=== PATIENT | female | born 1990 | race African-American/Black ===

== ENCOUNTER 2023-09-04 17:39 | Emergency (ER) | payer MEDICAID, SELFPAY ==
--- NOTE | ~2023-09-04 | US_ITS ---
EXAMINATION: US , LIMITED CLINICAL INFORMATION: Limited evaluation for the detection of heart rate and movement. COMPARISON: None available. TECHNIQUE: Very limited evaluation of the pelvis for determination of heart rate and movement. FINDINGS: Single intrauterine . movement is present. heart rate is 144 bpm. The cervical os is closed and the cervical length is 2.4 cm. No measurements were obtained. Evaluation is not targeted for evaluation of the or placental anatomy. The maternal uterus and ovaries were not imaged. US/US OB limited IMPRESSION: Very limited examination with present movements and heart rate.
[2023-09-04 17:53] VITALS: BP 122/76; PULSE 105; RESP 18; TEMP 36.2; O2SAT 99; BMI 33.8
--- NOTE | 2023-09-04 17:53 | ED_ITS ---
HPI - General Chief complaint: Abdominal Pain Stated complaint: 7 1/2 , Dizzy w/ lower abd pain History of Present Illness HPI Narrative: left without completing treatment Related Data Allergies Allergy/AdvReac Type Severity Reaction Status Date / Time No Known Allergies Allergy Verified 09/04/23 18:06 [facility] Social History Social History Advance Directives: No Advance Directives Information Provided: No Physical Exam 2 Vital Signs: Vital Signs: Last Vital Signs Temp 97.2 F 09/04/23 17:53 Pulse 105 H 09/04/23 17:53 Resp 18 09/04/23 17:53 BP 122/76 09/04/23 17:53 Pulse Ox 99 09/04/23 17:53 O2 Del Method Room Air 09/04/23 17:53 BMI result Body Mass Index 33.8 Course Course Course Narrative: This is an RME performed by Heidy Arzate CNP: Additional HPI, ROS, PE not included below will be deferred to primary provider. Patient is a 33-year-old female LMP 02/16/2023, 28 weeks , estimated due date 11/26/2023, presenting to emergency department for evaluation of bilateral lower abdominal pain, general unwell feeling. Symptom onset was yesterday. She endorses having vaginal itching recently but denies any vaginal discharge or bleeding. When asked, she states she is unsure whether the pain she is experiencing feels consistent with contractions that she has experienced in the past. She has previously been receiving her care at [facility], she moved here 08/21/2023 to a [facility] home on [facility], has not yet established care here. Physical exam: Diffuse lower abdominal tenderness upon palpation Plan: Labs, urinalysis, ultrasound Medical Decision Making Lab Data 09/04/23 18:29 09/04/23 18:29 Labs: Lab Results 09/04/23 Range/Units 18:29 WBC 10.7 (4.8-10.8) X10*3/uL RBC 3.39 L (4.20-5.50) X10*6/uL Hgb 8.9 L (12.0-16.0) g/dl Hct 27.0 L (37.0-47.0) % MCV 79.6 L (80.0-98.0) fL MCH 26.3 L (27.0-33.0) pg MCHC 33.0 (31.0-35.0) g/dl RDW 14.6 (11.0-16.0) % Plt Count 349 (160-400) X10*3/uL MPV 10.1 (9.4-12.3) fL Immature Gran % (Auto) 0.6 H (0.0-0.4) % Neut % (Auto) 62.5 (45-73) % Lymph % (Auto) 23.7 (20-40) % [place] % (Auto) 10.6 (2-11) % Eos % (Auto) 2.3 (0-4) % Baso % (Auto) 0.3 (0-2) % Lymph # (Auto) 2.5 (1.2-4.9) X10*3/uL [place] # (Auto) 1.1 (0.1-1.2) X10*3/uL Eos # (Auto) 0.3 (0.0-0.4) X10*3/uL Baso # (Auto) 0.0 (0.0-0.2) X10*3/uL Abs Immat Gran (auto) 0.06 H (0.00-0.03) X10*3/uL Absolute Neuts (auto) 6.7 (2.0-8.3) x10*3/uL Absolute Nucleated RBC 0.000 (0.0-0.012) X10*3/uL Nucleated RBC % (auto) 0.0 (0.0-0.2) /100WBC Sodium 139 (135-145) mmol/L Potassium 3.3 (3.3-5.1) mmol/L Chloride 111 H (96-108) mmol/L Carbon Dioxide 21 L (22-29) mmol/L Anion Gap 10 L (12-20) BUN 3 L (9-16) mg/dL Creatinine 0.44 L (0.5-1.4) mg/dL Estim Creat Clear Calc 161.5 Estimated GFR > 60 Random Glucose 100 (60-115) mg/dL Calcium 9.1 (8.4-10.2) mg/dL Total Bilirubin 0.1 (0.0-1.0) mg/dL AST 15 (5-31) U/L ALT 13 (0-31) U/L Alkaline Phosphatase 82 (39-117) U/L Total Protein 6.4 L (6.5-8.0) g/dL Albumin 3.2 L (3.5-5.0) g/dL TSH 2.05 (0.32-4.0) uIU/mL Beta HCG, Quant 6432 mIU/mL Urine Color Yellow Urine Appearance Clear Urine pH 7.0 (5.0-9.0) Ur Specific [place] <= 1.005 (1.005-1.025) Urine Protein Negative (Neg-Trace) mg/dL Urine Glucose (UA) Negative (Negative) mg/dL Urine Ketones Negative (Negative) mg/dL Urine Blood Negative (Negative) Urine Nitrite Negative (Negative) Ur Leukocyte Esterase Negative (Negative) Influenza Type A (PCR) NEGATIVE (Negative) Influenza Type B (PCR) NEGATIVE (Negative) RSV RNA Qual (PCR) NEGATIVE (Negative) SARS-CoV-2 RNA (RT-PCR) NEGATIVE (Negative) Discharge Plan Discharge Clinical Impression: Abdominal pain Patient Disposition: Left W/O Completing Treatment Discharge Date/Time: 09/04/23 23:01
[2023-09-04 18:49] LABS: MANUAL DIFF FLAG NO
[2023-09-04 19:04] LABS: Appearance Urine Clear; Color Urine Yellow; Glucose Urine UA Negative (Negative); Leukocyte Esterase Urine Negative (Negative); Nitrite Urine Negative (Negative); Specific Gravity - Urine <= 1.005 (1.005-1.025); Urine Blood Negative (Negative); Urine Ketones Negative (Negative); Urine Protein Negative (Neg-Trace)
[2023-09-04 19:08] LABS: Basophils Percent Auto 0.3 % (0-2); Eosinophils Absolute Auto 0.3 X10*3/uL (0.0-0.4); Eosinophils Percent Auto 2.3 % (0-4); Hemoglobin 8.9 g/dl (12.0-16.0); Imm Gran Abs Auto 0.06 X10*3/uL (0.00-0.03); Imm Gran Pct Auto 0.6 % (0.0-0.4); Lymphocytes Absolute Auto 2.5 X10*3/uL (1.2-4.9); Lymphocytes Percent Auto 23.7 % (20-40); Mean Corpuscular Hemoglobin 26.3 pg (27.0-33.0); Mean Corpuscular Volume 79.6 fL (80.0-98.0); Mean Platelet Volume 10.1 fL (9.4-12.3); Monocytes Absolute Auto 1.1 X10*3/uL (0.1-1.2); Monocytes Percent Auto 10.6 % (2-11); Neutrophils Absolute Auto 6.7 x10*3/uL (2.0-8.3); Neutrophils Percent Auto 62.5 % (45-73); Platelet Count 349 X10*3/uL (160-400); Red Blood Count 3.39 X10*6/uL (4.20-5.50); Red Cell Distribution Width 14.6 % (11.0-16.0); White Blood Count 10.7 X10*3/uL (4.8-10.8)
[2023-09-04 19:20] LABS: Alanine Aminotransferase 13 U/L (0-31); Albumin Level 3.2 g/dL (3.5-5.0); Alkaline Phosphatase 82 U/L (39-117); Anion Gap 10 (12-20); Aspartate Amino Transferase 15 U/L (5-31); Bilirubin Total 0.1 mg/dL (0.0-1.0); Blood Urea Nitrogen 3 mg/dL (9-16); Calcium 9.1 mg/dL (8.4-10.2); Carbon Dioxide 21 mmol/L (22-29); Chloride 111 mmol/L (96-108); Creatinine Clr Calc Pharmacy 161.5; Estimated Glomerular Filt Rate > 60; Glucose Random 100 mg/dL (60-115); Potassium 3.3 mmol/L (3.3-5.1); Sodium 139 mmol/L (135-145); Total Protein 6.4 g/dL (6.5-8.0)
[2023-09-04 19:28] LABS: Influenza A PCR NEGATIVE (Negative); Influenza B PCR NEGATIVE (Negative); Resp Syncy Virus RNA Qual PCR NEGATIVE (Negative); SARS COV2 PCR INHOUSE NEGATIVE (Negative)
[2023-09-04 19:35] LABS: HCG Quantitative 6432 mIU/mL; TSH reflex Free T4 2.05 uIU/mL (0.32-4.0)
== END 2023-09-04 23:01 | disposition left against medical advice (07) ==
LOC: HO.ED 22:35
PROVIDERS: Nurse Practitioner Family; Emergency Provider Emergency Medicine
DX: R10.2 Pelvic and perineal pain (principal); R42 Dizziness and giddiness; Z03.818 Encounter for observation for suspected exposure to other biological agents ruled out; Z79.899 Other long term (current) drug therapy
CPT/HCPCS: 0241U; 76815; 80053; 81003; 84443; 84702; 85025; 99282; 99284

== ENCOUNTER 2024-11-24 11:00 | Outpatient (REF) | payer MEDICAID, SELFPAY ==
--- OUTSIDE RECORDS SUMMARY | 2024-11-22 09:00 | XMS_ITS | Encounter Summary ---
Author Organization [employer] Address [address] [place] [address] Care Team Providers Care Shrink Pit Operator Name Role Phone Unavailable Primary Care Provider Unavailabl e Reason for Visit * Reason Comments Annual Exam Encounter Details Date Type Department Care Team ([facility] st Contact Info) Description 11/22/2024 9:00 AM EDT Office Visit [facility] [address] [place] [address] Yoly Ashley, SHIRA [address] [place] [address] Regular astigmatism, bilateral (Primary Dx); Refractive amblyopia, left; Dry eyes, bilateral Social History Tobacco Use Types Packs/Day Years Used Date Smoking Tobacco: Never Assessed Comments Unknown Sex and Gender Information Value Date Recorded Sex Assigned at Female 12/21/2023 1:17 PM EDT Legal Sex Female 2:44 PM EDT Gender Identity Female 12/21/2023 1:17 PM EDT Sexual Orientation Don't know 12/21/2023 1: 17 PM EDT documented as of this encounter Progress Notes * Yoly Ashley, SHIRA - 11/22/2024 9:00 AM EDT Eye Care Progress Note Patient ID: Marita Mcleod II is a 34 y.o. female. Chief Complaint Annual Exam HPI Patient reports blurry vision both eyes (OU) at distance. Patient has never worn glasses. 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 Patient reports itching. Patient has not used any eyedrops. Patient is currently - denies flashes/floaters. Today is the patient's first eye exam. Last edited by Yoly Ashley, OD on 11/22/2024 9:36 AM. Current Medications[1] Medical History[2] Surgical History[3] Family History[4] Tobacco Use: Not on file Allergies[5] ROS Positive for: Eyes Negative for: Constitutional, Gastrointestinal, Neurological, Skin, Genitourinary, Musculoskeletal,HENT, Endocrine, Cardiovascular, Respiratory, Psychiatric, Allergic/Imm, Heme/Lymph Last edited by Yoly Ashley, OD on 11/22/2024 8:59 AM. Base Eye Exam Visual Acuity (Snellen - Linear) Right Left Dist sc 20/60-2 20/70 Tonometry ([facility] , 9:20 AM) Right Left Pressure 13 13 Pupils Pupils APD Right PERRL None Left PERRL None Visual [place] (Counting fingers) Left Right Full Full Extraocular Movement Right Left Full Full Neuro/Psych Oriented x3: Yes Mood/Affect: Normal Dilation Deferred as patient is Slit Lamp and Fundus Exam External Exam Right Left External Normal Normal Slit Lamp Exam Right Left Lids/Lashes MGD MGD Conjunctiva/Sclera White and quiet White and quiet Cornea Clear Clear Anterior Chamber Deep and quiet, angles open Deep and quiet, angles open Iris Flat, round Flat, round Lens Clear Clear Fundus Exam Right Left Vitreous Clear Clear Disc [place] and healthy [place] and healthy C/D Ratio Vertical 0.40 0.40 C/D Ratio Horizontal 0.40 0.40 Macula Flat, even pigmentation Flat, even pigmentation Vessels AV 2/3, normal course and caliber AV 2/3, normal course and caliber Periphery Not assessed Not assessed Refraction Manifest Refraction (Auto) Sphere Cylinder [place] Dist [place] Right -2.50 -1.50 087 Left -0.50 -3.00 071 Manifest Refraction #2 (Subjective) Sphere Cylinder [place] Dist VA Right -1.75 -1.00 087 20/20 Left -1.00 -2.50 090 20/25+1 Manifest Refraction #3 (Subjective) Sphere Cylinder [place] Dist VA Right -1.75 -1.00 087 Left -1.50 -1.75 090 Comments: Reduced cylinder (cyl) from MRx#2 to increase visual comfort. Trial frame demo'd MRx#3 - pt reports clear and comfortable vision Final Rx Sphere Cylinder [place] Right -1.75 -1.00 087 Left -1.50 -1.75 090 Expiration Date: 11/22/2026 Assessment and Plan Diagnoses and all orders for this visit: Dry eyes, bilateral - Recommended the use of artificial tears in both eyes 1gtt 2-4x/day. Patient given dry eye handoutwith OTC drop options. Refractive amblyopia, left - Meridional amblyopia left eye (OS) with BCVA 20/25+1 - Monitor Regular astigmatism, bilateral - Dispensed updated spec Rx - RMV form completed - will give to patient with glasses when order comes in Dilation deferred today as patient is currently . Advised patient to RTC immediately if flashes/floaters, changes in vision or other ocular concerns occur. RTC in 2 years for comprehensive eye exam or sooner as needed Yoly Ashley, OD 11/22/2024, 9:40 AM Rn Pacu Source: __ None __ Bilingual Staff _x_ Qualified Staff Drop Wire Hanger __ Telephone Rn Pacu; ID# __ Rn Pacu brought by patient (family member, friend, LIME SUPERVISOR, etc) __ In person sheet heater helper _x_ Ipad Rn Pacu; ID#: _[id number]__ Language Spoken During Exam: [place] [1] No current outpatient medications on file. No current facility-administered medications for this visit. [2] History reviewed. No pertinent past medical history. [3] History reviewed. No pertinent surgical history. [4] No family history on file. [5] No Known Allergies documented in this encounter Plan of Treatment Upcoming Encounters Date Type Department Care Team (Late st Contact Info) Description 01/16/2025 9:45 AM EDT Procedure Visit [facility] [address] [place] [address] Bere Browning MD [address] [place] [address] documented as of this encounter Visit Diagnoses Diagnosis Regular astigmatism, bilateral- Primary Refractive amblyopia, left Dry eyes, bilateral documented in this encounter
--- OUTSIDE RECORDS SUMMARY | 2024-11-24 10:15 | XMS_ITS | Encounter Summary ---
Author Organization [employer] Address [address] [place] [address] Care Team Providers Care Septic Tank Cleaner Name Role Phone Unavailable Primary Care Provider Unavailabl e Encounter Details Date Type Department Care Team (Late st Contact Info) Description 11/24/2024 10:15 AM EDT Office Visit [facility] [address] [place] [address] Bere Browning MD [address] [place] [address] Dyslipidemia (Primary Dx) Social History Tobacco Use Types Packs/Day Years Used Date Smoking Tobacco: Never Smokeless Tobacco: Never Tobacco Cessation:Counseling Given: Not Answered Alcohol Use Standard Drinks/Week Comments Never 0 (1 standard drink = 0.6 oz pur e alcohol) Depression Answer Date Recorded Patient Health Questionnaire-9 Score 0 11/24/2024 Patient Health Questionnaire-9 Score 0 11/24/2024 Last PHQ-9: Questionnaire Data Not on file 0 11/24/2024 Depression Answer Date Recorded Patient Health Questionnaire-2 Score 0 11/24/2024 Comments No Sex and Gender Information Value Date Recorded Sex Assigned at Female 12/21/2023 1:17 PM EDT Legal Sex Female 2:44 PM EDT Gender Identity Female 12/21/2023 1:17 PM EDT Sexual Orientation Don't know 12/21/2023 1: 17 PM EDT documented as of this encounter Last Filed Vital Signs Vital Sign Reading Time Taken Comments Blood Pressure 128/80 11/24/2024 10:04 AM EDT Pulse 90 11/24/2024 10:04 AM EDT Temperature 36.9 C (98.4 F) 11/24/2024 10:04 AM EDT Respiratory Rate 19 11/24/2024 10:04 AM EDT Oxygen Saturation 99% 11/24/2024 10:04 AM EDT Inhaled Oxygen Concentration - - Weight 72.1 kg (159 lb) 11/24/2024 10:04 AM EDT Height 144.8 cm (4' 9 ) 11/24/2024 10:04 AM EDT Body Mass Index 34.41 11/24/2024 10:04 AM EDT documented in this encounter Functional Status * Over the past 2 weeks, how often have you been bothered by any of the following problems? Question Answer Date of Assessment Author Patient Health Questionnaire -2 Score 0 11/24/2024 11:13 AM EDT Ashley Wilcox MA * Little interest or pleasure in doing things Answer Date of Assessment Author Not at all 11/24/2024 11:13 AM EDT Ashley Wilcox MA * Feeling down, depressed, or hopeless Answer Date of Assessment Author Not at all 11/24/2024 11:13 AM EDT Ashley Wilcox MA * Trouble falling or staying asleep, or sleeping too much Answer Date of Assessment Author Not at all 11/24/2024 11:13 AM EDT Ashley Wilcox MA * Feeling tired or having little energy Answer Date of Assessment Author Not at all 11/24/2024 11:13 AM EDT Ashley Wilcox MA * Poor appetite or overeating Answer Date of Assessment Author Not at all 11/24/2024 11:13 AM EDT Ashley Wilcox MA * Feeling bad about yourself - or that you are a failure or have let yourself or your family down Answer Date of Assessment Author Not at all 11/24/2024 11:13 AM EDT Ashley Wilcox MA * Trouble concentrating on things, such as reading the newspaper or watching television Answer Date of Assessment Author Not at all 11/24/2024 11:13 AM HAOT Ashley Wilcox MA * Moving or speaking so slowly that other people could have noticed? Or the opposite - being so fidgety or restless that you have been moving around a lot more than usual. Answer Date of Assessment Author Not at all 11/24/2024 11:13 AM EDT Ashley Wilcox MA * Thoughts that you would be better off or hurting yourself in some way Answer Date of Assessment Author Not at all 11/24/2024 11:13 AM EDT Ashley Wilcox MA * Patient Health Questionnaire-9 Score Answer Date of Assessment Author 0 11/24/2024 11:13 AM EDT Ashley Wilcox MA * Over the last 2 weeks, how often have you been bothered by any of the following problems? Question Answer Date of Assessment Author Feeling nervous, anxious, or on edge 0 11/24/2024 11:13 AM EDT Ashley Wilcox MA Not being able to stop or co ntrol worrying 0 11/24/2024 11:13 AM EDT Ashley Wilcox MA Worrying too much about diff erent things 0 11/24/2024 11:13 AM EDT Ashley Wilcox MA Trouble relaxing 0 11/24/2024 11:13 AM EDT Ashley Wilcox MA Being so restless that it is hard to sit still 0 11/24/2024 11:13 AM EDT Ashley Wilcox MA Becoming easily annoyed or irritable 0 11/24/2024 11:13 AM EDT Ashley Wilcox MA Feeling afraid as if somethi ng awful might happen 0 11/24/2024 11:13 AM EDT Ashley Wilcox MA SREEKANTH-7 Total Score 0 11/24/2024 11:13 AM EDT Ashley Wilcox MA documented as of this encounter Plan of Treatment Upcoming Encounters Date Type Department Care Team (Late st Contact Info) Description 01/16/2025 9:45 AM EDT Procedure Visit [facility] [address] [place] [address] Bere Browning MD [address] [place] [address] Scheduled Orders Name Type Priority Associated Diagnoses Orde r Schedule CBC auto differential Lab Routine Dyslipidemia Expected: 11/24/2024 (Approximate), Expires: 11/24/2025 Comprehensive Metabolic Panel Lab Routine Dyslipidemia Expected: 11/24/2024 (Approximate), Expires: 11/24/2025 Hemoglobin A1c Lab Routine Dyslipidemia Expected: 11/24/2024 (Approximate), Expires: 11/24/2025 HIV-1/2 Antigen and Antibodies, Fourth Generation, with Reflexes Lab Routine Dyslipidemia Expected: 11/24/2024 (Approximate), Expires: 11/24/2025 Hepatitis C Antibody with Reflex to HCV, RNA, Quantitative, Real-Time PCR Lab Routine Dyslipidemia Expected: 11/24/2024, Expires: 11/24/2025 Lipid Panel, Standard Lab Routine Dyslipidemia Expected: 11/24/2024 (Approximate), Expires: 11/24/2025 Vitamin D, 25-Hydroxy, Total, Immunoassay Lab Routine Dyslipidemia Expected: 11/24/2024 (Approximate), Expires: 11/24/2025 TSH with Reflex to Free T4 Lab Routine Dyslipidemia Expected: 11/24/2024 (Approximate), Expires: 11/24/2025 documented as of this encounter Visit Diagnoses Diagnosis Dyslipidemia- Primary Other and unspecified hyperlipidemia documented in this encounter Additional Health Concerns Assessment Noted Time PHQ-9 Depression Total Score: 0 11/25/19 25 11:13 AM EDT documented as of this encounter
--- OUTSIDE RECORDS SUMMARY | 2024-11-24 12:25 | XMS_ITS | Encounter Summary ---
Author Organization [employer] Address [address] [facility] [address] [place] [address] Care Team Providers Care Inbound Sales Consultant Name Role Phone Unavailable Primary Care Provider Unavailabl e Encounter Details Date Type Department Care Team (Latest Contact Info) Description 11/24/2024 Travel Social History Tobacco Use Types Packs/Day Years Used Date Smoking Tobacco: Never Smokeless Tobacco: Never Alcohol Use Standard Drinks/Week Comments Never 0 [...] PM EDT documented as of this encounter Functional Status * Over the [...] Author Not at all 11/24/2024 11:13 AM Ashley José MA * Feeling tired or having little energy Answer Date of Assessment Author Not at all 11/24/2024 11:13 AM Ashley José MA * Poor appetite or overeating Answer Date of Assessment Author Not at all 11/24/2024 11:13 AM Ashley José MA * Feeling bad about yourself - or that you are a failure or have let yourself or your family down Answer Date of Assessment Author Not at all 11/24/2024 11:13 AM Ashley José MA * Trouble concentrating on things, such as reading the newspaper or watching television Answer Date of Assessment Author Not at all 11/24/2024 11:13 AM Ashley José MA * Moving or speaking so slowly that other people could have noticed? Or the opposite - being so fidgety or restless that you have been moving around a lot more than usual. Answer Date of Assessment Author Not at all 11/24/2024 11:13 AM Ashley José MA * Thoughts that you would be better off or hurting yourself in some way Answer Date of Assessment Author Not at all 11/24/2024 11:13 AM Ashley José MA * Patient Health Questionnaire-9 Score Answer Date of Assessment Author 0 11/24/2024 11:13 AM Ashley José MA * Over the last 2 weeks, how often have you been bothered by any of the following problems? Question Answer Date of Assessment Author Feeling nervous, anxious, or on edge 0 11/24/2024 11:13 AM Ashley José MA Not being able to stop or co ntrol worrying 0 11/24/2024 11:13 AM Ashley José MA Worrying too much about diff erent things 0 11/24/2024 11:13 AM Ashley José MA Trouble relaxing 0 11/24/2024 11:13 AM sAhley José MA Being so restless that it is hard to sit still 0 11/24/2024 11:13 AM EDT Ashley Wilcox MA Becoming easily annoyed or irritable 0 11/24/2024 11:13 AM EDT Ashley Wilcox MA Feeling afraid as if somethi ng awful might happen 0 11/24/2024 11:13 AM EDT Ashley Wilcxo MA SREEKANTH-7 Total Score 0 11/24/2024 11:13 AM EDT Ashley Wilcox MA documented as of this encounter Plan of Treatment Upcoming Encounters Date Type Department Care Team (Late st Contact Info) Description 01/16/2025 9:45 AM EDT Procedure Visit [facility] [address] [place] [address] Bere Browning MD [address] [place] [address] documented as of this encounter Visit Diagnoses Not on filedocumented in this encounter Additional Health Concerns Assessment Noted Time PHQ-9 Depression Total Score: 0 11/25/19 11:13 AM EDT documented as of this encounter
--- OUTSIDE RECORDS SUMMARY | 2024-11-24 12:25 | XMS_ITS | Encounter Summary ---
Author Organization [employer] Address [address] [facility] [address]t [place] [address] Care Team Providers Care Vice Chair Name Role Phone Unavailable Primary Care Provider Unavailabl e Reason for Visit * Reason Onset Date Comments chart prep 11/23/2024 Encounter Details Date Type Department Care Team (Late st Contact Info) Description 11/23/2024 Telephone [facility] [address] [place] [address] Bere Browning MD [address] [place] [address] chart prep Social History Tobacco Use Types Packs/Day Years Used Date Smoking Tobacco: Never Assessed Depression Answer Date Recorded Patient Health Questionnaire-9 Score 0 11/24/2024 Patient Health Questionnaire-9 Score 0 11/24/2024 Last PHQ-9: Questionnaire Data Not on file 0 11/24/2024 Depression Answer Date Recorded Patient Health Questionnaire-2 Score 0 11/24/2024 Comments Unknown Sex and Gender Information Value Date Recorded Sex Assigned at Female 12/21/2023 1:17 PM EDT Legal Sex Female 2:44 PM EDT Gender Identity Female 12/21/2023 1:17 PM EDT Sexual Orientation Don't know 12/21/2023 1: 17 PM EDT documented as of this encounter Miscellaneous Notes * Telephone Encounter - Que Frankel MA - 11/23/2024 9:49 AM EDT Chart Prep Labs: not applicable Images: not applicable Referrals: not applicable Vaccines due: Covid, Flu, Hep B, and HPV Screenings: pap smear Overdue care gaps: SBIRT, SDOH, PHQ-9, and SREEKANTH-7 documented in this encounter Plan of Treatment Upcoming Encounters Date Type Department Care Team (Late st Contact Info) Description 01/16/2025 9:45 AM EDT Procedure Visit [facility] [address] [place] [address] Bere Browning MD [address] [place] [address] documented as of this encounter Visit Diagnoses Not on filedocumented in this encounter
--- OUTSIDE RECORDS SUMMARY | 2024-11-24 12:25 | XMS_ITS | Encounter Summary ---
Author Organization [employer] Address [address] [facility] [address] [place] [address] Care Team Providers Care Pediatric Clinical Dietician Name Role Phone Unavailable Primary Care Provider Unavailabl e Encounter Details Date Type Department Care Team (Latest Contact Info) Description 11/22/2024 Travel Social History Tobacco Use Types Packs/Day Years Used Date Smoking Tobacco: Never Assessed Comments Unknown Sex and Gender Information Value Date Recorded Sex Assigned at Female 12/21/2023 1:17 PM EDT Legal Sex Female 2:44 PM EDT Gender Identity Female 12/21/2023 1:17 PM EDT Sexual Orientation Don't know 12/21/2023 1: 17 PM EDT documented as of this encounter Plan of Treatment Upcoming Encounters Date Type Department Care Team (Late st Contact Info) Description 01/16/2025 9:45 AM EDT Procedure Visit [facility]INE [address] [place] [address] Bere Browning MD [address] [place] [address] documented as of this encounter Visit Diagnoses Not on filedocumented in this encounter
--- OUTSIDE RECORDS SUMMARY | 2024-11-24 12:25 | XMS_ITS | Clinical Summary ---
Author Organization [employer] Address [address] [facility] [address] [place] [address] Care Team Providers Care Securities Underwriter Name Role Phone Unavailable Primary Care Provider Unavailabl e Allergies No known active allergies Medications lidocaine (Xylocaine) 5 % ointmentIndicat ions:Painful cutaneous scar Apply topically if needed in the morning and at bedtime for mild pain. Apply to painful scar on abdomen sparingly. 35 g 1 11/23/19 25 Discontinu ed(Therapy completed) Active Problems Problem Noted Date Diagnosed Date Dyslipidemia 11/24/2024 Encounters Date Type Department Care Team Description 11/24/2024 10:15 AM EDT Office Visit [facility] [address] [place] [address] Bere Browning MD Dyslipidemia (Primary Dx) 11/24/2024 Travel 11/23/2024 Telephone [facility] [address] [place] [address] Bere Browning MD chart prep 11/22/2024 9:00 AM EDT Office Visit [facility] [address] [place] [address] Yoly Ashley, OD Regular astigmatism, bilateral (Primary Dx); Refractive amblyopia, left; Dry eyes, bilateral 11/22/2024 Travel from Last 3 Months Immunizations Immunization Administration Dates Next Due Influenza, seasonal, injectable, preservative fr ee 02/24/2024 Tdap 09/24/2023 Social History Tobacco Use Types Packs/Day Years [...] Don't know 12/21/2023 1: 17 PM EDT Last Filed Vital Signs Vital Sign Reading [...] Mass Index 34.41 11/24/2024 10:04 AM EDT Plan of Treatment Upcoming Encounters Date Type Department Care Team (Late st Contact Info) Description 01/16/2025 9:45 AM EDT Procedure Visit [facility] [address] [place] [address] Bere Browning MD [address] [place] [address] Health Maintenance Due Date Last Done Comments Lipid Panel 1990 SDOH Screening 1990 Family Planning (PISQ) 2005 HPV Vaccines (1 - 3-dose series) 2005 Hepatitis C Screening 2008 Hepatitis B Vaccines (1 of 3 - 19+ 3-dose series) 2009 Pap Smear 2011 Cervical Cancer Screening 2020 HPV/Cotest 2020 COVID-19 Vaccine (1 - 2023-2 5 season) 2023 Influenza Vaccine (#1) 2024 02/24/2024 Alcohol/Substance Use Screening 11/24/2025 11/24/2024 Depression Screening 11/24/2025 11/24/2024, 11/24/2024 Disability Screening 11/24/2025 11/24/2024 Tobacco Screening 11/24/2025 11/24/2024 DTaP/Tdap/Td Vaccines (2 - T d or Tdap) 09/23/2033 09/24/2023 Zoster Vaccines (1 of 2) 2040 RSV Patients and Patients Aged 60 years or older (1 - 1-dose 75+ series) 2065 HIV Screening Completed 08/05/2023, 08/05/2023 HIB Vaccines Aged Out No longer eligi ble based on patient's age to complete this topic Hepatitis A Vaccines Aged Out No long er eligible based on patient's age to complete this topic IPV Vaccines Aged Out No longer eligi ble based on patient's age to complete this topic Meningococcal B Vaccine Aged Out No l onger eligible based on patient's age to complete this topic Meningococcal Vaccine Aged Out No syeda bridger eligible based on patient's age to complete this topic Pneumococcal Vaccine: Pediatrics (0 to 5 Years) and At-Risk Patients (6 to 49) Years Aged Out No longer eligible b ased on patient's age to complete this topic RSV under 20 months Aged Out No longe r eligible based on patient's age to complete this topic Rotavirus Vaccines Aged Out No longer eligible based on patient's age to complete this topic Insurance [facility] C3
[2024-11-24 13:17] LABS: MANUAL DIFF FLAG NO
[2024-11-24 13:33] LABS: Hemoglobin A1C 109.2537 umol/L; Total Hemoglobin (HGBA1C) 2721.6517 umol/L
[2024-11-24 13:40] LABS: Hematocrit 33.4 % (37.0-47.0); Hemoglobin 10.0 g/dl (12.0-16.0); Imm Gran Abs Auto 0.01 X10*3/uL (0.00-0.03); Imm Gran Pct Auto 0.2 % (0.0-0.4); Lymphocytes Absolute Auto 3.1 X10*3/uL (1.2-4.9); Mean Corpuscular HGB Conc 29.9 g/dl (31.0-35.0); Mean Corpuscular Hemoglobin 22.7 pg (27.0-33.0); Mean Corpuscular Volume 75.9 fL (80.0-98.0); NRBC Abs Auto 0.000 X10*3/uL (0.0-0.012); NRBC Pct Auto 0.0 /100WBC (0.0-0.2); Platelet Count 451 X10*3/uL (160-400); Red Blood Count 4.40 X10*6/uL (4.20-5.50); White Blood Count 6.6 X10*3/uL (4.8-10.8)
[2024-11-24 13:47] LABS: Alanine Aminotransferase 24 U/L (0-31); Albumin Level 4.5 g/dL (3.5-5.0); Alkaline Phosphatase 71 U/L (39-117); Anion Gap 11 (12-20); Aspartate Amino Transferase 23 U/L (5-31); Blood Urea Nitrogen 7 mg/dL (9-16); Calcium 9.2 mg/dL (8.4-10.2); Carbon Dioxide 25 mmol/L (22-29); Chloride 109 mmol/L (96-108); Cholesterol 254 mg/dL (<200); Estimated Glomerular Filt Rate > 60; HDL Cholesterol 52 mg/dL (>40); Potassium 4.0 mmol/L (3.3-5.1); Sodium 141 mmol/L (135-145); Total Protein 7.5 g/dL (6.5-8.0); Triglycerides 120 mg/dL (<150)
[2024-11-25 03:49] LABS: HIV Num 1 0.09 S/CO (0.00-0.99); ~HepC Num1 0.12 S/CO (0.00-0.79); ~Hepatitis C Antibody Nonreactive (Nonreactive)
== END 2024-11-24 11:01 | disposition home or self-care (01) ==
LOC: HO.HHCL 11:00
PROVIDERS: PCP Internal Medicine; Visit Provider Internal Medicine
DX: E78.5 Hyperlipidemia, unspecified (principal); Z11.4 Encounter for screening for human immunodeficiency virus [HIV]; Z11.59 Encounter for screening for other viral diseases
CPT/HCPCS: 36415; 80053; 80061; 82306; 83036; 84443; 85025; 86803; 87389

== ENCOUNTER 2024-11-29 12:05 | Outpatient (REF) | payer MEDICAID, SELFPAY ==
--- OUTSIDE RECORDS SUMMARY | 2024-11-24 10:15 | XMS_ITS | Encounter Summary ---
Author Organization [employer] Address [address] [facility] [address] [place] [address] Care Team Providers Care Yard Hostler Name Role Phone Unavailable Primary Care Provider Unavailabl e Encounter Details Date Type Department Care Team (Late st Contact Info) Description 11/24/2024 10:15 AM EDT Office Visit [facility] [address] [place] [address] Bere Browning MD [address] [place] [phone] Dyslipidemia (Primary Dx) Social History Tobacco Use [...] of Assessment Author 0 11/24/2024 11:13 AM HAOT Ashley Wilcox MA * Over the last [...] awful might happen 0 11/24/2024 11:13 AM HAOT Ashley Wilcox MA SREEKANTH-7 Total Score 0 11/24/2024 11:13 AM EDT Ashley Wilcox MA documented as of this encounter Progress Notes * Bere Cai MD - 11/24/2024 10:15 AM EDT SUBJECTIVE: Marita Mcleod II is a 34 y.o. year old female who presents for New patient . 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 HENT: Negative. Respiratory: Negative. Cardiovascular: Negative. OBJECTIVE: Vitals: 11/24/24 1004 BP: 128/80 BP Location: Left arm Patient Position: Sitting BP Cuff Size: Adult Pulse: 90 Resp: 19 Temp: 98.4 ??F (36.9 ??C) TempSrc: Oral SpO2: 99% Weight: 159 lb (72.1 kg) Height: 4' 9 (1.448 m) Physical Exam Constitutional: Appearance: Normal appearance. Cardiovascular: Rate and Rhythm: Normal rate and regular rhythm. Pulmonary: Effort: Pulmonary effort is normal. Breath sounds: Normal breath sounds. Abdominal: General: Abdomen is flat. Palpations: Abdomen is soft. Musculoskeletal: Right lower leg: No edema. Left lower leg: No edema. Neurological: Mental Status: She is alert. Follow Up: Follow up for next available PAP and review of labs . Medications Ordered Prior to Encounter[3] Problem List Items Addressed This Visit Dyslipidemia - Primary Blood work ordered today, she will be contacted with results Relevant Orders CBC auto differential Comprehensive Metabolic Panel Hemoglobin A1c HIV-1/2 Antigen and Antibodies, Fourth Generation, with Reflexes Hepatitis C Antibody with Reflex to HCV, RNA, Quantitative, Real-Time PCR Lipid Panel, Standard Vitamin D, 25-Hydroxy, Total, Immunoassay TSH with Reflex to Free T4 [1] Patient Active Problem List Diagnosis Dyslipidemia [2] No family history on file. [3] Current Outpatient Medications on File Prior to Visit Medication Sig Dispense Refill [DISCONTINUED] lidocaine (Xylocaine) 5 % ointment Apply topically if needed in the morning and at bedtime for mild pain. Apply to painful scar on abdomen sparingly. 35 g 1 No current facility-administered medications on file prior to visit. documented in this encounter Miscellaneous Notes * Assessment & Plan Note - Bere Cai MD - 11/24/2024 12:29 PM EDT Associated Problem(s): Dyslipidemia Blood work ordered today, she will be contacted with results documented in this encounter Plan of Treatment Upcoming Encounters Date Type Department Care Team (Late st Contact Info) Description 01/16/2025 9:45 AM EDT Procedure Visit [facility] [address] [place], [place] [phone] Bere Browning MD [address] [place], [place] [phone] documented as of this encounter Procedures Procedure Name Priority Date/Time Associated Diagnosis Comments VITAMIN D,25-OH,TOTAL,IA Routine 11/24/2024 11:05 AM EDT Dyslipidemia TSH W/REFLEX TO FT4 Routine 11/24/2024 1 1:05 AM EDT Dyslipidemia CBC WITH AUTO DIFFERENTIAL Routine 11/24/2024 11:05 AM EDT Dyslipidemia HEPATITIS C AB W/REFL TO HCV RNA, QN, PCR Routine 11/24/2024 11:05 AM EDT Dyslipidemia HIV 1/2 ANTIGEN/ANTIBODY, FOURTH GENERATION W/RFL Routine 11/24/2024 11:05 AM EDT Dyslipidemia HEMOGLOBIN A1C Routine 11/24/2024 11:05 AM EDT Dyslipidemia LIPID PANEL, STANDARD Routine 11/24/2024 11:05 AM EDT Dyslipidemia COMPREHENSIVE METABOLIC PANEL Routine 11/24/2024 11:05 AM EDT Dyslipidemia documented in this encounter Results * TSH with Reflex to Free T4 (11/24/2024 11:05 AM EDT) TSH reflex Free T4 0.89 0.32 - 4.0 uIU/mL [facility] Blood Venous blood specimen / Unknown 11/24/2024 11:05 AM EDT 11/24/2024 1:12 PM EDT us Bere Cai MD LAB BLOOD ORDERABLES Final Result [facility] [address] [place] [phone] * (ABNORMAL) Vitamin D, 25-Hydroxy, Total, Immunoassay (11/24/2024 11:05 AM EDT) Vitamin D 25-OH Total 15.0(L) >30 ng/mL [facility] Comment: Health Based Reference Values*< 20 ng/mL [id number] ng/mL Insufficient> 30 ng/mL Sufficient*Sidney TELLO. N Engl J Med. 2007;357:266-280There is no well-established upper level of normal vitamin Dlevels. Some laboratories use 50 ng/mL as an upper limit ofnormal. However, toxicity is patient-dependent and may occurat any level. Careful correlation with the patient'spresentation is necessary and, if there is concern forvitamin D toxicity, treatment should be consideredirrespective of the serum level.Care must be taken in interpreting Vitamin D results fromdifferent laboratories and methodologies. Published datademonstrated that results from patients undergoinghemodialysis may show a negative bias when tested withvarious automated 25-OH vitamin D assays when compared toLC-MS/MS.When testing samples from patients whose predominant form ofVitamin D is Vitamin D2, such as patients receiving VitaminD2 supplementation, results that are subtherapeutic shouldbe confirmed with another method such as LC-MS/MS. Blood Venous blood specimen / Unknown 11/24/2024 11:05 AM EDT 11/24/2024 1:12 PM EDT us Bere Cai MD LAB BLOOD ORDERABLES Final Result [facility] [address] [place] [phone] [phone] * (ABNORMAL) Lipid Panel, Standard (11/24/2024 11:05 AM EDT) Triglycerides 120 <150 mg/dL [facility] Comment:Desirable Triglyceri de: less than 150 mg/dLBorderline High Triglyceride 150-199 mg/dLHigh Triglyceride: 200-499 mg/dLVery High Triglyceride: greater than or equal to 5OO mg/dL Cholesterol 254(H) <200 mg/dL [facility] Comment:Desirable Cholestero l: less than 200 mg/dLBorderline High Cholesterol: 200-239 mg/dLHigh Cholesterol: greater than 239 mg/dL LDL Cholesterol Calculated 178(H) <100 mg/dL [facility] Comment:Desirable LDL: less than 100 mg/dLNear Optimal/Above Optimal LDL: 110- 129 mg/dLBorderline High LDL: 130-159 mg/dLHigh LDL: 160-189 mg/dLVery High LDL: greater than or equal to 190 mg/dL HDL Cholesterol 52 >40 mg/dL [facility] Comment:Desirable HDL: great er than 40 mg/dL Note: This HDL assay may give artificially low results in patients with liver disease. Blood Venous blood specimen / Unknown 11/24/2024 11:05 AM EDT 11/24/2024 1:12 PM EDT us Bere Cai MD LAB BLOOD ORDERABLES Final Result [facility] [address] [place] [phone] * Hepatitis C Antibody with Reflex to HCV, RNA, Quantitative, Real-Time PCR (11/24/2024 11:05 AM EDT) Hepatitis C Antibody Nonreactive Nonreactive [facility] Comment:Antibodies to HCV no t detected; does not exclude early acuteHCV infection. Blood Venous blood specimen / Unknown 11/24/2024 11:05 AM EDT 11/24/2024 1:12 PM EDT Bere Cai MD LAB BLOOD ORDERABLES Final Result Performing Organization Address [facility] [place] [facility] Co de Phone Number [facility] [address] [place] [phone] * HIV-1/2 Antigen and Antibodies, Fourth Generation, with Reflexes (11/24/2024 11:05 AM EDT) HIV AB/AG Nonreactive Nonreactive [facility] Comment:HIV-1 p24 Ag and/or HIV-1/HIV-2 Ab not detected.A test result that is nonreactive does not exclude thepossibility of exposure to or infection with HIV-1 and/orHIV-2. Nonreactive results in this assay for individualswith prior exposure to HIV-1 and/or HIV-2 may be due toantigen and antibody levels that are below the limit ofdetection of this assay.The PeriphaGen HIV Ag/Ab Combo assay result andsupplemental assay results should be interpreted inconjunction with the patient's clinical presentation,history and other laboratory results. If the results areinconsistent with clinical evidence, additional testing issuggested to confirm the result. Blood Venous blood specimen / Unknown 11/24/2024 11:05 AM EDT 11/24/2024 1:12 PM EDT us Bere Cai MD LAB BLOOD ORDERABLES Final Result Performing Organization Address [facility] [place] [facility]/ZIP Co de Phone Number [facility] [address] [place] [phone] * Hemoglobin A1c (11/24/2024 11:05 AM EDT) Hemoglobin A1c 5.8 <6.0 % [facility] Comment:Hemoglobin A1C Refer ence Range Adults: 4.8 - 6.0 % Non diabetic: < 6.0 % Goal: < 7.0 %Additional Action Suggested: > 8.0 %Note: Hemoglobin A1c results are invalid for patients with abnormal amounts of HbF. Blood transfusions may impact the HbA1c concentration in the patient sample. Estimated Average Glucose 120 mg/dL [facility] Comment:eAG = Estimated ave rage glucose which is %A1C expressed asaverage glucose, using the formula of the N5G-WbscqwzNxewpal Glucose study (ADAG), Diabetes Care, Vol.31,#8,Oct. 2007 Blood Venous blood specimen / Unknown 11/24/2024 11:05 AM EDT 11/24/2024 1:12 PM EDT us Bere Cai MD LAB BLOOD ORDERABLES Final Result [facility] [address] [place] [phone] * (ABNORMAL) Comprehensive Metabolic Panel (11/24/2024 11:05 AM EDT) Sodium 141 135 - 145 mmol/L [facility] Potassium 4.0 3.3 - 5.1 mmol/L [facility] Chloride 109(H) 96 - 108 mmol/L [facility] Carbon Dioxide 25 22 - 29 mmol/L [facility] Anion Gap 11(L) 12 - 20 [facility] Urea Nitrogen (BUN) 7(L) 9 - 16 mg/dL [facility] Creatinine, Serum 0.54 0.5 - 1.4 mg/dL [facility] Estimated Glomerular Filt Rate >60 [facility] Comment:Chronic Kidney Disea se: Estimated GFR < 60 mL/min/1.49e3Oghtkw Kidney Disease: Estimated GFR < 15 mL/min/1.73m2 Glucose 87 60 - 115 mg/dL [facility] Calcium 9.2 8.4 - 10.2 mg/dL [facility] Bilirubin, Total 0.2 0.0 - 1.0 mg/dL [facility] Aspartate Amino Transferase 23 5 - 31 U/L [facility] Alanine Aminotransferase 24 0 - 31 U/L [facility] Total Protein 7.5 6.5 - 8.0 g/dL [facility] Albumin Level 4.5 3.5 - 5.0 g/dL [facility] Alkaline Phosphatase 71 39 - 117 U/L [facility] Blood Venous blood specimen / Unknown 11/24/2024 11:05 AM EDT 11/24/2024 1:12 PM EDT Bere Cai MD LAB BLOOD ORDERABLES Final Result [facility] [address] [place] [phone] * (ABNORMAL) CBC auto differential (11/24/2024 11:05 AM EDT) White Blood Count 6.6 4.8 - 10.8 X10*3/uL [facility] Red Blood Count 4.40 4.20 - 5.50 X10*6/uL [facility] Hemoglobin 10.0(L) 12.0 - 16.0 g/dl [facility] Hematocrit 33.4(L) 37.0 - 47.0 % [facility] Mean Corpuscular Volume 75.9(L) 80.0 - 98.0 fL [facility] Mean Corpuscular Hemoglobin 22.7(L) 27.0 - 33.0 pg [facility] Mean Corpuscular HGB Conc 29.9(L) 31.0 - 35.0 g/dl [facility] Red Cell Distribution Width 17.1(H) 11.0 - 16.0 % [facility] Platelet Count 451(H) 160 - 400 X10*3/uL [facility] Mean Platelet Volume 10.4 9.4 - 12.3 fL [facility] Neutrophils Percent Auto 42.8(L) 45 - 73 % [facility] Imm Gran Pct Auto 0.2 0.0 - 0.4 % [facility] Lymphocytes Percent Auto 46.9(H) 20 - 40 % [facility] Monocytes Percent Auto 8.4 2 - 11 % [facility] Eosinophils Percent Auto 1.1 0 - 4 % [facility] Basophils Percent Auto 0.6 0 - 2 % [facility] NRBC Pct Auto 0.0 0.0 - 0.2 /100WBC [facility] Neutrophils Absolute Auto 2.8 2.0 - 8.3 x10*3/uL [facility] Imm Gran Abs Auto 0.01 0.00 - 0.03 X10*3/uL [facility] Lymphocytes Absolute Auto 3.1 1.2 - 4.9 X10*3/uL [facility] Monocytes Absolute Auto 0.6 0.1 - 1.2 X10*3/uL [facility] Eosinophils Absolute Auto 0.1 0.0 - 0.4 X10*3/uL [facility] Basophils Absolute Auto 0.0 0.0 - 0.2 X10*3/uL [facility] NRBC Abs Auto 0.000 0.0 - 0.012 X10*3/uL [facility] Blood Venous blood specimen / Unknown 11/24/2024 11:05 AM EDT 11/24/2024 1:12 PM EDT us Bere Cai MD LAB BLOOD ORDERABLES Final Result [facility] [address] [place] [phone] documented in this encounter Visit Diagnoses Diagnosis Dyslipidemia- Primary Other and unspecified hyperlipidemia documented in this encounter Additional Health Concerns Assessment Noted Time PHQ-9 Depression Total Score: 0 11/25/19 11:13 AM EDT documented as of this encounter
--- OUTSIDE RECORDS SUMMARY | 2024-11-29 13:24 | XMS_ITS | Clinical Summary ---
Author Organization [employer] Address [address] [facility] 7t [place] [address] Care Team Providers Care Machinist Mechanic Name Role Phone Unavailable Primary Care Provider Unavailabl e Allergies No known active allergies Medications cholecalciferol (Vitamin D-3) 25 MCG (1000 UT) tabletIndicatio ns:Anemia, unspecified type Take 1 tablet (25 mcg) by mouth Once per day. 60 tablet 1 5 Active ferrous gluconate (Fergon) 324 (38 Fe) MG tabletIndicatio ns:Anemia, unspecified type Take 1 tablet every other day 15 tablet 2 5 Active ascorbic acid (Vitamin C) 500 MG tabletIndicatio ns:Anemia, unspecified type Take 1 tablet every other day together with iron supplement 15 tablet 2 5 Active lidocaine (Xylocaine) 5 % ointmentIndicat ions:Painful cutaneous scar Apply topically if needed in the morning and at bedtime for mild pain. Apply to painful scar on abdomen sparingly. 35 g 1 5 11/23/19 25 Discontin ued(Thera py completed ) Active Problems Problem Noted Date Diagnosed Date Dyslipidemia 11/24/2024 Assessment & Plan (11/24/2024 12:29 PM EDT): Blood work ordered today, she will be contacted with results Encounters Date Type Department Care Team Description 11/29/2024 Orders Only [facility] MEDICINE [address] [place] [phone] Bere Browning MD Metrorrhagia (Primary Dx) 11/24/2024 10:15 AM EDT Office Visit [facility]INE [address] [place] [phone] Bere Browning MD Dyslipidemia (Primary Dx) 11/24/2024 Results Follow-Up [facility] [address] [place] [address] Bere Browning MD CBC auto differential, Comprehensive Metabolic Panel, Hemoglobin A1c, Additional followed-up results: 5 11/24/2024 Travel 11/23/2024 Telephone [facility] MEDICINE [address] [place] [address] Bere Browning MD chart prep 11/22/2024 9:00 AM EDT Office Visit [facility] OPTOMETRY [address] [place] [address] TarYoly arciniega, OD Regular astigmatism, bilateral (Primary Dx); Refractive [...] Description 01/16/2025 9:45 AM EDT Procedure Visit [facility] [address] [place], [place] [phone] Bere Browning MD [address] [place], [place] [phone] Health Maintenance Due Date Last Done Comments SDOH Screening 1990 Family Planning (PISQ) 2005 HPV Vaccines (1 - 3-dose series) 2005 Hepatitis B Vaccines (1 of 3 - 19+ 3-dose series) 2009 Pap Smear 2011 Cervical Cancer Screening 2020 HPV/Cotest 2020 COVID-19 Vaccine ( - 2023-2 5 season) 2024 Influenza Vaccine (#1) 2024 02/24/2024 Alcohol/Substance Use Screening 11/24/2025 11/24/2024 Depression Screening 11/24/2025 11/24/2024, 11/24/2024 Diabetes: Hemoglobin A1C 11/24/2025 11/24/2024 Disability Screening 11/24/2025 11/24/2024 Tobacco Screening 11/24/2025 11/24/2024 Lipid Panel 11/24/2029 11/24/2024 DTaP/Tdap/Td Vaccines (2 - T d or Tdap) 09/23/2033 09/24/2023 Zoster Vaccines (1 of 2) 2040 RSV Patients and Patients Aged 60 years or older (1 - 1-dose 75+ series) 2065 HIV Screening Completed 11/24/2024, 08/05/2023, 08/05/2023 Hepatitis C Screening Completed 11/24/2024 HIB Vaccines Aged Out No longer eligi [...] on patient's age to complete this topic Procedures Procedure Name Priority Date/Time Associated Diagnosis Comments TSH W/REFLEX TO FT4 Routine 11/24/2024 1 1:05 AM EDT Dyslipidemia VITAMIN D,25-OH,TOTAL,IA Routine 11/24/2024 11:05 AM EDT Dyslipidemia LIPID PANEL, STANDARD Routine 11/24/2024 11:05 AM EDT Dyslipidemia HEPATITIS C AB W/REFL TO HCV RNA, QN, PCR Routine 11/24/2024 11:05 AM EDT Dyslipidemia HIV 1/2 ANTIGEN/ANTIBODY, FOURTH GENERATION W/RFL Routine 11/24/2024 11:05 AM EDT Dyslipidemia HEMOGLOBIN A1C Routine 11/24/2024 11:05 AM EDT Dyslipidemia COMPREHENSIVE METABOLIC PANEL Routine 11/24/2024 11:05 AM EDT Dyslipidemia CBC WITH AUTO DIFFERENTIAL Routine 11/24/2024 11:05 AM EDT Dyslipidemia from Last 3 Months Results * (ABNORMAL) Vitamin D, 25-Hydroxy, Total, Immunoassay (11/24/2024 11:05 AM EDT) Vitamin D 25-OH Total 15.0(L) >30 ng/mL [facility] Comment: Health Based Reference Values*< 20 ng/mL [id number] ng/mL Insufficient> 30 ng/mL Sufficient*Sidney TELLO. N [...] BLOOD ORDERABLES Final Result Performing Organization Address City/[facility]/ZIP Co de Phone Number [facility] [address] [place] [phone] * TSH with Reflex to Free T4 (11/24/2024 11:05 AM EDT) TSH reflex Free T4 0.89 0.32 - 4.0 uIU/mL [facility] Blood Venous blood specimen / Unknown 11/24/2024 11:05 AM EDT 11/24/2024 1:12 PM EDT us Bere Cai MD LAB BLOOD ORDERABLES Final Result Performing Organization Address City/[facility]/ZIP Co de Phone Number [facility] [address] [place] [phone] * (ABNORMAL) CBC auto differential (11/24/2024 11:05 AM EDT) White Blood Count 6.6 4.8 - 10.8 X10*3/uL [facility] Red Blood Count 4.40 4.20 - 5.50 X10*6/uL [facility] Hemoglobin 10.0(L) 12.0 - 16.0 g/dl [facility] Hematocrit 33.4(L) 37.0 - 47.0 % [facility] Mean Corpuscular Volume 75.9(L) 80.0 - 98.0 fL [facility] Mean Corpuscular Hemoglobin 22.7(L) 27.0 - 33.0 pg [facility] Mean Corpuscular HGB Conc 29.9(L) 31.0 - 35.0 g/dl [facility] Red Cell Distribution Width 17.1(H) 11.0 - 16.0 % [facility] Platelet Count 451(H) 160 - 400 X10*3/uL [facility] Mean Platelet Volume 10.4 9.4 - 12.3 fL [facility] Neutrophils Percent Auto 42.8(L) 45 - 73 % [facility] Imm Gran Pct Auto 0.2 0.0 - 0.4 % [facility] Lymphocytes Percent Auto 46.9(H) 20 - 40 % [facility] Monocytes Percent Auto 8.4 2 - 11 % [facility] Eosinophils Percent Auto 1.1 0 - 4 % [facility] Basophils Percent Auto 0.6 0 - 2 % [facility] NRBC Pct Auto 0.0 0.0 - 0.2 /100WBC [facility] Neutrophils Absolute Auto 2.8 2.0 - 8.3 x10*3/uL [facility] Imm Gran Abs Auto 0.01 0.00 - 0.03 X10*3/uL [facility] Lymphocytes Absolute Auto 3.1 1.2 - 4.9 X10*3/uL [facility] Monocytes Absolute Auto 0.6 0.1 - 1.2 X10*3/uL [facility] Eosinophils Absolute Auto 0.1 0.0 - 0.4 X10*3/uL [facility] Basophils Absolute Auto 0.0 0.0 - 0.2 X10*3/uL [facility] NRBC Abs Auto 0.000 0.0 - 0.012 X10*3/uL [facility] Blood Venous blood specimen / Unknown 11/24/2024 11:05 AM EDT 11/24/2024 1:12 PM EDT Bere Cai MD LAB BLOOD ORDERABLES Final Result Performing Organization Address [facility]/ZIP Co de Phone Number [facility] [address] [place] [phone] * Hepatitis C Antibody with Reflex to HCV, RNA, Quantitative, Real-Time PCR (11/24/2024 11:05 AM EDT) Pathologist [facility] Hepatitis C Antibody Nonreactive Nonreactive [facility] Comment:Antibodies to HCV no t detected; does not exclude early acuteHCV infection. Blood Venous blood specimen / Unknown 11/24/2024 11:05 AM EDT 11/24/2024 1:12 PM EDT us Bere Cai MD LAB BLOOD ORDERABLES Final Result Performing Organization Address [facility]/ZIP Co de Phone Number [facility] [address] [place] [phone] * HIV-1/2 Antigen and Antibodies, Fourth Generation, with Reflexes (11/24/2024 11:05 AM EDT) Pathologist [facility] HIV AB/AG Nonreactive Nonreactive [facility] Comment:HIV-1 p24 Ag and/or HIV-1/HIV-2 Ab not detected.A test result that is nonreactive does not exclude thepossibility of exposure to or infection with HIV-1 and/orHIV-2. Nonreactive results in this assay for individualswith prior exposure to HIV-1 and/or HIV-2 may be due toantigen and antibody levels that are below the limit ofdetection of this assay.The [employer] HIV Ag/Ab Combo assay result andsupplemental assay results should be interpreted inconjunction with the patient's clinical presentation,history and other laboratory results. If the results areinconsistent with clinical evidence, additional testing issuggested to confirm the result. Blood Venous blood specimen / Unknown 11/24/2024 11:05 AM EDT 11/24/2024 1:12 PM EDT us Bere Cai MD LAB BLOOD ORDERABLES Final Result Performing Organization Address [facility] Co de Phone Number [facility] [address] [place] [phone] * Hemoglobin A1c (11/24/2024 11:05 AM EDT) Hemoglobin A1c 5.8 <6.0 % [facility] Comment:Hemoglobin A1C Refer ence Range Adults: 4.8 - 6.0 % Non diabetic: < 6.0 % Goal: < 7.0 %Additional Action Suggested: > 8.0 %Note: Hemoglobin A1c results are invalid for patients with abnormal amounts of HbF. Blood transfusions may impact the HbA1c concentration in the patient sample. Estimated Average Glucose 120 mg/dL [facility] Comment:eAG = Estimated ave rage glucose which is %A1C expressed asaverage glucose, using the formula of the S5A-YwbtwckBsvptil Glucose study (ADAG), Diabetes Care, Vol.31,#8,Oct. 2007 Blood Venous blood specimen / Unknown 11/24/2024 11:05 AM EDT 11/24/2024 1:12 PM EDT us Bere Cai MD LAB BLOOD ORDERABLES Final Result Performing Organization Address [facility] Co de Phone Number [facility] [address] [place] [phone] * (ABNORMAL) Lipid Panel, Standard (11/24/2024 11:05 AM EDT) Triglycerides 120 <150 mg/dL [facility] Comment:Desirable Triglyceri de: less than 150 mg/dLBorderline High Triglyceride 150-199 mg/dLHigh Triglyceride: 200-499 mg/dLVery High Triglyceride: greater than or equal to 5OO mg/dL Cholesterol 254(H) <200 mg/dL [facility] Comment:Desirable Cholestero l: less than 200 mg/dLBorderline High Cholesterol: 200-239 mg/dLHigh Cholesterol: greater than 239 mg/dL LDL Cholesterol Calculated 178(H) <100 mg/dL [facility] Comment:Desirable LDL: less than 100 mg/dLNear Optimal/Above Optimal LDL: 110- 129 mg/dLBorderline High LDL: 130-159 mg/dLHigh LDL: 160-189 mg/dLVery High LDL: greater than or equal to 190 mg/dL HDL Cholesterol 52 >40 mg/dL [facility] Comment:Desirable HDL: great er than 40 mg/dL Note: This HDL assay may give artificially low results in patients with liver disease. Blood Venous blood specimen / Unknown 11/24/2024 11:05 AM EDT 11/24/2024 1:12 PM EDT us Bere Cai MD LAB BLOOD ORDERABLES Final Result [facility] [address] [place] [phone] * (ABNORMAL) Comprehensive Metabolic Panel (11/24/2024 11:05 AM EDT) Sodium 141 135 - 145 mmol/L [facility] Potassium 4.0 3.3 - 5.1 mmol/L [facility] Chloride 109(H) 96 - 108 mmol/L [facility] Carbon Dioxide 25 22 - 29 mmol/L [facility] Anion Gap 11(L) 12 - 20 [facility] Urea Nitrogen (BUN) 7(L) 9 - 16 mg/dL [facility] Creatinine, Serum 0.54 0.5 - 1.4 mg/dL [facility] Estimated Glomerular Filt Rate >60 [facility] Comment:Chronic Kidney Disea se: Estimated GFR < 60 mL/min/[id number] Kidney Disease: Estimated GFR < 15 mL/min/1.73m2 Glucose 87 60 - 115 mg/dL [facility] Calcium 9.2 8.4 - 10.2 mg/dL [facility] Bilirubin, Total 0.2 0.0 - 1.0 mg/dL [facility] Aspartate Amino Transferase 23 5 - 31 U/L [facility] Alanine Aminotransferase 24 0 - 31 U/L [facility] Total Protein 7.5 6.5 - 8.0 g/dL [facility] Albumin Level 4.5 3.5 - 5.0 g/dL [facility] Alkaline Phosphatase 71 39 - 117 U/L [facility] Blood Venous blood specimen / Unknown 11/24/2024 11:05 AM EDT 11/24/2024 1:12 PM EDT us Bere Cai MD LAB BLOOD ORDERABLES Final Result [facility] [address] [place] [phone] from Last 3 Months Insurance [facility] [id number]
--- OUTSIDE RECORDS SUMMARY | 2024-11-29 13:24 | XMS_ITS | Encounter Summary ---
Author Organization [employer] Address [address] [place] [address] 7 [place] [address] Care Team Providers Care Publications Production Supervisor Name Role Phone Unavailable Primary Care Provider Unavailabl e Reason for Referral * Consultation (Routine) - Pending Review Specialty Diagnoses / Procedures Referred By Radha stinson Referred To Contact Obstetrics and Gynecology Diagnoses Metrorrhagia Bere Browning MD [address] [place] [address] Phone: tel: fax: Referral ID Status Reason Start Date Expiration Date Visits Requested Visits Authorized [id number] Pending Review Specialty Services Required 11/29/2024 11/29/2025 1 1 Encounter Details Date Type Department Care Team (Late st Contact Info) Description 11/29/2024 Orders Only [facility] MEDICINE [address] [place] [phone] Bere Browning MD [address] [place] [address] [phone] Metrorrhagia (Primary Dx) Social History Tobacco Use Types [...] Description 01/16/2025 9:45 AM EDT Procedure Visit [facility] [address] [place] [address] Bere Browning MD [address] [place] [address] Scheduled Referrals Name Type Priority Associated Diagnoses Order Schedule Referral to Obstetrics / Gynecology Outpatient Referral Routine Metrorrhagia Expected: 11/29/2024 (Approximate), Expires: 11/29/2025 documented as of this encounter Visit Diagnoses Diagnosis Metrorrhagia- Primary documented in this encounter Additional Health Concerns Assessment Noted Time PHQ-9 Depression Total Score: 0 11/25/19 25 11:13 AM EDT documented as of this encounter
--- OUTSIDE RECORDS SUMMARY | 2024-11-29 13:24 | XMS_ITS | Encounter Summary ---
Author Organization [employer] Address [address] [facility] 7t [place] [address] Care Team Providers Care Medical Auditor Name Role Phone Unavailable Primary Care Provider [...] [place] Trouble relaxing 0 11/24/2024 11:13 AM Ashley José [place] Being so restless that it [...] AM EDT Procedure Visit [facility] [address] [place] [address] Bere Browning MD [address] [place] [address] documented as of this encounter Visit Diagnoses Not on filedocumented in this encounter Additional Health Concerns Assessment Noted Time PHQ-9 Depression Total Score: 0 11/25/19 11:13 AM EDT documented as of this encounter
--- OUTSIDE RECORDS SUMMARY | 2024-11-29 13:24 | XMS_ITS | Encounter Summary ---
Author Organization [employer] Address [address] [facility] 7t [place] [address] Care Team Providers Care Machine Silver Stripper Name Role Phone Unavailable Primary Care Provider Unavailabl e Reason for Visit * Reason Onset Date Comments Results 11/24/2024 Encounter Details Date Type Department Care Team (Latest Contact Info) Description 11/24/2024 Results Follow-Up [facility] MED[facility]INE [address] [place] [address] Bere Browning MD [address] [place] [address] CBC auto differential, Comprehensive Metabolic Panel, Hemoglobin A1c, Additional followed-up results: 5 Social History Tobacco Use Types Packs/Day Years [...] 11:13 AM Ashley José [place] * Feeling down, depressed, or hopeless Answer Date of Assessment Author Not at all 11/24/2024 11:13 AM Ashley José [place] * Trouble falling or staying asleep, [...] Wilcox [place] documented as of this encounter Miscellaneous Notes * Telephone Encounter - Bo Webber RN - 11/29/2024 10:56 AM EDT Noted patient of referral. * Telephone Encounter - Bo Webber RN - 11/29/2024 9:46 AM EDT TC placed to patient [phone] using [facility] #[place] [id number] regarding below message. RN informed patient of her lab results showing low vitamin D, anemia, borderline diabetes and elevated cholesterol. RN educated patient on the risk factors, the importance of a healthy diet, exercise, medication and labsthat where ordered. Patient reported heavy menstrual periods that last 3 -6 days and would like a re ferral to [facility]. RN informed patient that an message will be sen to the provider about the referral. Patient verbalized understanding. PT to F/U PRN. ----- Message from Bere Cai MD sent at 11/25/2024 3:16 PM EDT ----- Please let patient know I reviewed her labs her vitamin D is low we will send some supplements her hemoglobin is low 10 she has anemia please ask if her menstrual period this heavy I will order anemia workup and iron supplements if she is having heavy menstrual period I am happy to put in a referral to gynecology. I also noticed her A1c is 5.8 and glucose is 120, she is not diabetic but this means she is at risk for diabetes I advise diet and exercise. Her cholesterol is also high I advised healthy diet and exercise ----- Message ----- From: Interface, Lab Results In Sent: 11/24/2024 1:34 PM EDT To: Bere Cai MD documented in this encounter Plan of Treatment Upcoming Encounters Date Type Department Care Team (Late st Contact Info) Description 01/16/2025 9:45 AM EDT Procedure Visit [facility] MEDICINE [address] [place] [address] Bere Browning MD [address] [place] [address] Scheduled Orders Name Type Priority Associated Diagnoses Orde r Schedule CBC auto differential Lab Routine Anemia, unspecified type Expected: 11/25/2024 (Approximate), Expires: 11/25/2025 Iron And Total Iron Binding Capacity Lab Routine Anemia, unspecified type Expected: 11/25/2024, Expires: 11/25/2025 Ferritin Lab Routine Anemia, unspecified type Expected: 11/25/2024, Expires: 11/25/2025 Vitamin B12 (Cobalamin) and Folate Panel, Serum Lab Routine Anemia, unspecified type Expected: 11/25/2024, Expires: 11/25/2025 documented as of this encounter Visit Diagnoses Diagnosis Anemia, unspecified type- Primary documented in this encounter Additional Health Concerns Assessment Noted Time PHQ-9 Depression Total Score: 0 11/25/19 25 11:13 AM EDT documented as of this encounter
[2024-11-29 16:13] LABS: MANUAL DIFF FLAG NO
[2024-11-29 16:24] LABS: Hematocrit 34.6 % (37.0-47.0); Hemoglobin 10.4 g/dl (12.0-16.0); Imm Gran Abs Auto 0.01 X10*3/uL (0.00-0.03); Imm Gran Pct Auto 0.1 % (0.0-0.4); Lymphocytes Absolute Auto 2.7 X10*3/uL (1.2-4.9); Mean Corpuscular HGB Conc 30.1 g/dl (31.0-35.0); Mean Corpuscular Hemoglobin 22.9 pg (27.0-33.0); Mean Corpuscular Volume 76.2 fL (80.0-98.0); NRBC Abs Auto 0.000 X10*3/uL (0.0-0.012); NRBC Pct Auto 0.0 /100WBC (0.0-0.2); Platelet Count 428 X10*3/uL (160-400); Red Blood Count 4.54 X10*6/uL (4.20-5.50); White Blood Count 7.0 X10*3/uL (4.8-10.8)
[2024-11-29 16:48] LABS: Iron 38 mcg/dL (30-160); Percent Iron Saturation 9 % (15-50); Total Iron Binding Capacity 404 mcg/dL (228-428); Unsaturated Iron Binding 366 ug/dL
[2024-11-29 16:55] LABS: Ferritin 7 ng/mL (10-122)
[2024-11-29 17:04] LABS: Folate 8.4 ng/mL (> or = 4.0); Vitamin B12 485 pg/mL (200-900)
== END 2024-11-29 12:06 | disposition home or self-care (01) ==
LOC: HO.HHCL 12:05
PROVIDERS: PCP Internal Medicine; Visit Provider Internal Medicine
DX: D64.9 Anemia, unspecified (principal)
CPT/HCPCS: 36415; 82607; 82728; 82746; 83540; 85025

== ENCOUNTER 2025-01-16 17:52 | Outpatient (REF) | payer MEDICAID, SELFPAY ==
--- OUTSIDE RECORDS SUMMARY | 2025-01-16 09:45 | XMS_ITS | Encounter Summary ---
Author Organization [employer] Address [address] [facility] [address] [place] [address] Care Team Providers Care Labeler Name Role Phone Bere Browning MD Primary Care Provide r Reason for Referral * Consultation (Urgent) - Authorized Specialty Diagnoses / Procedures Referred By Radha stinson Referred To Contact Diagnoses Homeless Bere Browning MD [address] [place] [phone] Phone: tel: fax: Referral ID Status Reason Start Date Expiration Date Visits Requested Visits Authorized [id number] Authorized Specialty Services Required 01/16/2026 1 1 Reason for Visit * Reason Comments Gynecologic Exam Encounter Details Date Type Department Care Team (Latest Contact Info) Description 01/16/2025 9:45 AM EDT Procedure Visit [facility] [address] [place] [phone] Bere Browning MD [address] [place] [address] [phone] Homeless (Primary Dx); Dietary counseling; Exercise counseling; Encounter for Papanicolaou smear of cervix Social History Tobacco Use Types Packs/Day Years Used Date Smoking Tobacco: Never Smokeless Tobacco: Never Alcohol Use Standard Drinks/Week Comments Yes 0 (1 standard drink = 0.6 oz [...] Sign Reading Time Taken Comments Blood Pressure 106/78 01/16/2025 10:08 AM EDT Pulse 85 01/16/2025 10:08 AM EDT Temperature 36.1 C (96.9 F) 01/16/2025 10:08 AM EDT Respiratory Rate 17 01/16/2025 10:0 8 AM EDT Oxygen Saturation 99% 01/16/2025 10: 08 AM EDT Inhaled Oxygen Concentration - - Weight 75.2 kg (165 lb 12.8 oz) 025 10:08 AM EDT Height - - Body Mass Index 35.88 11/24/2024 10:04 AM EDT documented in this encounter Progress Notes * Bere Cai MD - 01/16/2025 9:45 AM EDT SUBJECTIVE: Marita Mcleod II is a 34 y.o. year old female who presents for Pap . Patient is [place] Creole speaker number of [place] [phone] Patient denies breast pain, breast lumps, changes in the skin of the breast, nipple retraction or discharge Patient denies pelvic pain, vaginal discharge Patient today expresses concerns because she is right now in a [facility] and was told she has until the end of the month to stay in the [facility] Social History Social History Narrative Not on file Problem List[1] Dyslipidemia Elevated cholesterol Chronic hypertension Supervision of high risk due to social problems, antepartum Limited care in second trimester History of induced hypertension History of pre-eclampsia in prior , currently History of section Family History[2] Review of Systems Constitutional: Negative. HENT: Negative. Respiratory: Negative. Genitourinary: Negative. OBJECTIVE: Vitals: 01/16/25 1008 BP: 106/78 BP Location: Left arm Patient Position: Sitting BP Cuff Size: Large adult Pulse: 85 Resp: 17 Temp: 96.9 ??F (36.1 ??C) TempSrc: Oral SpO2: 99% Weight: 165 lb 12.8 oz (75.2 kg) Physical Exam Exam conducted with a nursing education consultant present. Constitutional: Appearance: Normal appearance. Cardiovascular: Rate and Rhythm: Normal rate and regular rhythm. Pulmonary: Effort: Pulmonary effort is normal. Abdominal: General: Abdomen is flat. Palpations: Abdomen is soft. Genitourinary: Vagina: Normal. Cervix: Normal. Uterus: Normal. Adnexa: Right adnexa normal. Neurological: Mental Status: She is alert. Follow Up: No follow-ups on file. Medications Ordered Prior to Encounter[3] Problem List Items Addressed This Visit Homeless - Primary Relevant Orders Referral to Care Management Encounter for Papanicolaou smear of cervix Pap smear and pelvic exam done today patient will be contacted with results Relevant Orders Pap Smear Other Visit Diagnoses Dietary counseling Exercise counseling [1] Patient Active Problem List Diagnosis Dyslipidemia Elevated cholesterol Chronic hypertension Supervision of high risk due to social problems, antepartum Limited care in second trimester History of induced hypertension History of pre-eclampsia in prior , currently History of section Homeless Encounter for Papanicolaou smear of cervix [2] No family history on file. [3] Current Outpatient Medications on File Prior to Visit Medication Sig Dispense Refill ascorbic acid (Vitamin C) 500 MG tablet Take 1 tablet every other day together with iron [id number] tablet 2 cholecalciferol (Vitamin D-3) 25 MCG (1000 UT) tablet Take 1 tablet (25 mcg) by mouth Once per day.60 tablet 1 ferrous gluconate (Fergon) 324 (38 Fe) MG tablet Take 1 tablet every other day 15 tablet 2 No current facility-administered medications on file prior to visit. documented in this encounter Miscellaneous Notes * Assessment & Plan Note - Bere Cai MD - 01/16/2025 4:29 PM EDT Associated Problem(s): Encounter for Papanicolaou smear of cervix Pap smear and pelvic exam done today patient will be contacted with results documented in this encounter Plan of Treatment Upcoming Encounters Date Type Department Care Team (Late st Contact Info) Description 01/31/2025 10:00 AM EST Office Visit [facility] [address] [place] [address] Herman Reid DDS [address] [place] [address] 07/13/2025 9:30 AM EDT Office Visit [facility] [address] [place] [phone] Susan Pham Scheduled Orders Name Type Priority Associated Diagnoses Orde r Schedule Pap Smear Pathology and Cytology Routine Encounter for Papanicolaou smear of cervix Ordered: 01/16/2025 Scheduled Referrals Name Type Priority Associated Diagnoses Order Schedule Referral to Care Management Outpatient Referral Urgent Homeless Expected: 01/16/2025 (Approximate), Expires: 01/16/2026 documented as of this encounter Visit Diagnoses Diagnosis Homeless- Primary Lack of housing Dietary counseling Dietary surveillance and counseling Exercise counseling Encounter for Papanicolaou smear of cervix documented in this encounter Additional Health Concerns Assessment Noted Time PHQ-9 Depression Total Score: 0 11/25/19 11:13 AM EDT documented as of this encounter Care Teams Labeler Relationship Specialty Start Date End Date Bere Browning MD [address] [place] [phone] PCP - General Internal Medicine 12/05/24 documented as of this encounter
--- OUTSIDE RECORDS SUMMARY | 2025-01-16 20:55 | XMS_ITS | Clinical Summary ---
Author Organization [employer] Address [address] [facility] 7t [place] [address] Care Team Providers Care Loan Reviewer Name Role Phone Bere Browning MD Primary Care Provide r Allergies No known active allergies Medications cholecalciferol (Vitamin D-3) 25 MCG (1000 UT) tabletIndication s:Anemia, unspecified type Take 1 tablet (25 mcg) by mouth Once per day. 60 tablet 1 5 Active ferrous gluconate (Fergon) 324 (38 Fe) MG tabletIndication s:Anemia, unspecified type Take 1 tablet every other day 15 tablet 2 5 Active ascorbic acid (Vitamin C) 500 MG tabletIndication s:Anemia, unspecified type Take 1 tablet every other day together with iron supplement 15 tablet 2 5 Active Active Problems Problem Noted Date Diagnosed Date Homeless 01/16/2025 Encounter for Papanicolaou smear of cervix 01/16 Assessment & Plan (01/16/2025 4:29 PM EDT): Pap smear and pelvic exam done today patient will be contacted with results Chronic hypertension 01/09/2025 History of pre-eclampsia in prior , currently 01/09/2025 Dyslipidemia 11/24/2024 Assessment & Plan (11/24/2024 12:29 PM EDT): Blood work ordered today, she will be contacted with results Elevated cholesterol 08/05/2023 Overview (01/09/2025): Lipid panel abnormal, follow up with PCP PP [ ] gtt at 24+ weeks History of induced hypertension 2023 Overview (01/09/2025): Unknown if gHTN or PEC Baseline PEC labs ordered on 08/04 Enrolled in [employer] program on 08/04 Supervision of high risk pre gnancy due to social problems, antepartum 08/04/2023 Overview (01/09/2025): Pt is 33 y.o. with JOANN of 11/26/23 dated by LMP Provider: [facility] providers Clinic: [facility] in [place] Language Spoken: Dustin Muniz Prepregnancy BMI: 33.58 at onset of care at 23.5 weeks ANY REASON TO DECLINE BLOOD PRODUCTS OR CERTAIN TREATMENTS? No Social: Country of origin: [place] FOB: Manuel, in [place] DV screen: Negative Depression screen: See EPDS/RHS-15 ETOH/Tobacco/Drug Hx: Denies current or past use/abuse Education/Literacy: 11th grade Housing: Currently at [facility], [place] Main Support: Family abroad Work: Not currently working Genetic Screen: Ethnicity: Dustin Hgb Electrophoresis: Negative 08/05/23 CF:Negative 08/05/23 SMA: Negative 08/05/23 FTS: AFP: survey: TB Screen: Risk factor for TB: From country with high prevalence TB testing result: Quant gold negative on 08/05/23 Immunization: TDAP date: Flu Shot date: Labor Plan: Child Education class referral: Pain management/ plan: Consent reviewed and signed: Sister/labor support/ sister/DREAM student: : Baby sex: Circumcision: Contraception: : Pedi provider: Car seat: VNA: As needed Social work: Yes, needs ongoing support consult needed: As needed Vaccinations needed: Labs: Maternal Blood Type: O + (07/10/23) H/H: 9.7 (08/05/23) Hep B: Non-reactive (08/05/23) Hep C: Non-reactive (08/05/23) HIV: Non-reactive (08/05/23) Syphilis: Non-reactive (08/05/23) Quant Gold: Negative (08/05/23) Rubella: Immune (08/05/23) Varicella: Immune: (08/05/23) GC/CT: Neg/Neg (07/10/23) Limited care in second trimester 2023 History of section 07/10/2023 Overview (01/09/2025): Primary c/s for PIH (unknown if PEC or gHTN) Appears to have been induced prior to section, remembers receiving pitocin. Encounters Date Type Department Care Team Description 01/16/2025 9:45 AM EDT Procedure Visit [address] [address] Bere Browning MD Homeless (Primary Dx); Dietary counseling; Exercise counseling; Encounter for Papanicolaou smear of cervix 01/16/2025 Patient Outreach [address] [address] Bere Browning MD Care Coordination ([address] Helen Peraza outreach in person) 01/16/2025 Travel 01/13/[address] [address] Bere Browning MD Chart Prep 01/09/2025 1:30 PM EDT Office Visit [facility] [address] [place] [phone] Susan Pham Dental calculus (Primary Dx); Dental plaque; Encounter for dental examination; Tooth impaction 12/08/2024 1:00 PM EDT Office Visit [facility] [address] [place] [phone] Crescencio Brown DMD 11/29/2024 Orders Only [address] [address] Bere Browning MD Metrorrhagia (Primary Dx) 11/24/2024 10:15 AM EDT Office Visit [address] [address] Bere Browning MD Dyslipidemia (Primary Dx) 11/24/2024 Results Follow-Up [address] [address] Bere Browning MD CBC auto differential, Comprehensive Metabolic Panel, Hemoglobin A1c, Additional followed-up results: 5 11/24/2024 Travel 11/23/[address] [facility] [address] [place] [address] Bere Browning MD chart prep 11/22/2024 9:00 AM EDT Office Visit [facility] [address] [place] [address] Yoly Ashley, OD Regular astigmatism, bilateral (Primary Dx); Refractive amblyopia, left; Dry eyes, bilateral 11/22/2024 Travel from Last 3 Months Immunizations Immunization Administration Dates Next Due Influenza, seasonal, injectable, preservative fr ee 02/24/2024 Tdap 09/24/2023 Social History Tobacco Use Types Packs/Day Years Used Date Smoking Tobacco: Never Smokeless Tobacco: Never Tobacco Cessation:Counseling Given: Not Answered Alcohol Use Standard Drinks/Week Comments Yes 0 [...] 12.8 oz) 025 10:08 AM EDT Height 144.8 cm (4' 9 ) 11/24/2024 10:0 4 AM EDT Body Mass Index 35.88 11/24/2024 10:04 AM EDT Plan of Treatment Upcoming Encounters Date Type Department Care Team (Late st Contact Info) Description 01/31/2025 10:00 AM EST Office Visit [facility] [address] [place], [place] [phone] JeanetteBjorn laneHermanGRISELDAS [address] [place], [place] [phone] 07/13/2025 9:30 AM EDT Office Visit [facility] [address] [place], [place] [phone] Susan Pham Health Maintenance Due Date Last Done Comments SDOH Screening 1990 Family Planning (PISQ) 2005 HPV Vaccines (1 - 3-dose series) 2005 Hepatitis B Vaccines (1 of 3 - 19+ 3-dose series) 2009 Pap Smear 2011 Cervical Cancer Screening 2020 HPV/Cotest 2020 COVID-19 Vaccine (1 - 2023-2 5 season) 2024 Influenza Vaccine (#1) 2024 02/24/2024 Dental Oral Exam 07/11/2025 01/09/2025 Dental Prophylaxis 07/11/2025 01/09/2025 Alcohol/Substance Use Screening 11/24/2025 11/24/2024 Depression Screening 11/24/2025 11/24/2024, 11/24/2024 Diabetes: Hemoglobin A1C 11/24/2025 11/24/2024 Disability Screening 11/24/2025 11/24/2024 Tobacco Screening 01/09/2026 01/09/2025 Dental X-Ray: Bitewings 01/10/2026 01/09/2025 Dental X-Ray: Full Mouth 01/11/2028 01/09/2025 Lipid Panel 11/24/2029 11/24/2024 DTaP/Tdap/Td Vaccines (2 [...] Procedure Name Priority Date/Time Associated Diagnosis Comments CASE PRESENTATION, DETAILED AND EXTENSIVE TREATMENT PLANNING Routine 01/09/2025 1:30 PM EDT ORAL HYGIENE INSTRUCTIONS Routine 01/09/2025 1:30 PM EDT Dental calculus Dental plaque PROPHYLAXIS - ADULT Routine 01/09/2025 1 :30 PM EDT Dental calculus Dental plaque INTRAORAL - COMPLETE SERIES OF RADIOGRAPHIC IMAGES Routine 01/09/2025 1:30 PM EDT COMPREHENSIVE ORAL EVALUATION - NEW OR ESTABLISHED PATIENT Routine 01/09/2025 1:30 PM EDT CASE PRESENTATION, DETAILED AND EXTENSIVE TREATMENT PLANNING Routine 12/08/2024 1:00 PM EDT INTRAORAL - PERIAPICAL FIRST RADIOGRAPHIC IMAGE Routine 12/08/2024 1:00 PM EDT PALLIATIVE (EMERGENCY) TREATMENT OF DENTAL PAIN - MINOR PROCEDURE Routine 12/08/2024 1:00 PM EDT VITAMIN B12/FOLATE, SERUM PANEL Routine 11/29/2024 12:52 PM EDT Anemia, unspecified type FERRITIN Routine 11/29/2024 12:52 PM EDT Anemia, unspecified type IRON AND TOTAL IRON BINDING CAPACITY Routine 11/29/2024 12:52 PM EDT Anemia, unspecified type CBC WITH AUTO DIFFERENTIAL Routine 11/29/2024 12:52 PM EDT Anemia, unspecified type TSH W/REFLEX TO FT4 Routine 11/24/2024 1 [...] Dyslipidemia from Last 3 Months Results * Vitamin B12 (Cobalamin) and Folate Panel, Serum (11/29/2024 12:52 PM EDT) Vitamin B12 485 200 - 900 pg/mL [facility] Comment:NORMAL 200-900 PG/ML INDETERMINATE 160-199 PG/ML DEFICIENT < 160 PG/ML Folate 8.4 > or = 4.0 ng/mL [facility] Comment:Reference Values:> o r = 4.0 ng/mL< 4.0 ng/mL suggests folate deficiency Methotrexate, aminopterin and folinic acid(leucovorin) are chemotherapeutic agents whose molecularstructures are similar to folate; therefore, the Architectfolate assay cannot be used for patients using these drugs. Blood Venous blood specimen / Unknown 11/29/2024 12:52 PM EDT 11/29/2024 4:00 PM EDT Bere Cai MD LAB BLOOD ORDERABLES Final Result [facility] [address] [place] [phone] [phone] * (ABNORMAL) CBC auto differential (11/29/2024 12:52 PM EDT) Only the most recent of2 resultswithin the time period is included. White Blood Count 7.0 4.8 - 10.8 X10*3/uL [facility] Red Blood Count 4.54 4.20 - 5.50 X10*6/uL [facility] Hemoglobin 10.4(L) 12.0 - 16.0 g/dl [facility] Hematocrit 34.6(L) 37.0 - 47.0 % [facility] Mean Corpuscular Volume 76.2(L) 80.0 - 98.0 fL [facility] Mean Corpuscular Hemoglobin 22.9(L) 27.0 - 33.0 pg [facility] Mean Corpuscular HGB Conc 30.1(L) 31.0 - 35.0 g/dl [facility] Red Cell Distribution Width 17.1(H) 11.0 - 16.0 % [facility] Platelet Count 428(H) 160 - 400 X10*3/uL [facility] Mean Platelet Volume 10.6 9.4 - 12.3 fL [facility] Neutrophils Percent Auto 52.9 45 - 73 % [facility] Imm Gran Pct Auto 0.1 0.0 - 0.4 % [facility] Lymphocytes Percent Auto 38.8 20 - 40 % [facility] Monocytes Percent Auto 7.0 2 - 11 % [facility] Eosinophils Percent Auto 0.6 0 - 4 % [facility] Basophils Percent Auto 0.6 0 - 2 % [facility] NRBC Pct Auto 0.0 0.0 - 0.2 /100WBC [facility] Neutrophils Absolute Auto 3.7 2.0 - 8.3 x10*3/uL [facility] Imm Gran Abs Auto 0.01 0.00 - 0.03 X10*3/uL [facility] Lymphocytes Absolute Auto 2.7 1.2 - 4.9 X10*3/uL [facility] Monocytes Absolute Auto 0.5 0.1 - 1.2 X10*3/uL [facility] Eosinophils Absolute Auto 0.0 0.0 - 0.4 X10*3/uL [facility] Basophils Absolute Auto 0.0 0.0 - 0.2 X10*3/uL [facility] NRBC Abs Auto 0.000 0.0 - 0.012 X10*3/uL [facility] Blood Venous blood specimen / Unknown 11/29/2024 12:52 PM EDT 11/29/2024 4:10 PM EDT us Bere Cai MD LAB BLOOD ORDERABLES Final Result Performing Organization Address City/[facility] Co de Phone Number [facility] [address] [place] [phone] * (ABNORMAL) Iron And Total Iron Binding Capacity (11/29/2024 12:52 PM EDT) Iron 38 30 - 160 mcg/dL [facility] Total Iron Binding Capacity 404 228 - 428 mcg/dL [facility] Percent Iron Saturation 9(L) 15 - 50 % [facility] Unsaturated Iron Binding 366 ug/dL [facility] Blood Venous blood specimen / Unknown 11/29/2024 12:52 PM EDT 11/29/2024 4:00 PM EDT us Bere Cai MD LAB BLOOD ORDERABLES Final Result Performing Organization Address City/[facility]/ZIP Co de Phone Number [facility] [address] [place] [phone] * (ABNORMAL) Ferritin (11/29/2024 12:52 PM EDT) Ferritin 7(L) 10 - 122 ng/mL [facility] Blood Venous blood specimen / Unknown 11/29/2024 12:52 PM EDT 11/29/2024 4:00 PM EDT Bere Cai MD LAB BLOOD ORDERABLES Final Result [facility] [address] [place] [phone] * (ABNORMAL) Vitamin D, 25-Hydroxy, Total, Immunoassay (11/24/2024 11:05 AM EDT) Vitamin D 25-OH Total 15.0(L) >30 ng/mL [facility] Comment: Health Based Reference Values*< 20 ng/mL [id number] ng/mL Insufficient> 30 ng/mL Sufficient*Sidney TELLO. N [...] BLOOD ORDERABLES Final Result Performing Organization Address [facility] Co de Phone Number [facility] [address] [place] [phone] * TSH with Reflex to Free T4 (11/24/2024 11:05 AM EDT) TSH reflex Free T4 0.89 0.32 - 4.0 uIU/mL [facility] Blood Venous blood specimen / Unknown 11/24/2024 11:05 AM EDT 11/24/2024 1:12 PM EDT Bere Cai MD LAB BLOOD ORDERABLES Final Result Performing Organization Address [facility] Co de Phone Number [facility] [address] [place] [phone] * Hepatitis C Antibody with Reflex to HCV, RNA, Quantitative, Real-Time PCR (11/24/2024 11:05 AM EDT) Pathologist [facility] Hepatitis C Antibody Nonreactive Nonreactive [facility] Comment:Antibodies to HCV no t detected; does not exclude early acuteHCV infection. Blood Venous blood specimen / Unknown 11/24/2024 11:05 AM EDT 11/24/2024 1:12 PM EDT us Bere Cai MD LAB BLOOD ORDERABLES Final Result Performing Organization Address [facility] Co de Phone Number [facility] [address] [place] [phone] * HIV-1/2 Antigen and Antibodies, Fourth Generation, with Reflexes (11/24/2024 11:05 AM EDT) HIV AB/AG Nonreactive Nonreactive [facility] Comment:HIV-1 p24 Ag and/or HIV-1/HIV-2 Ab not detected.A test result that is nonreactive does not exclude thepossibility of exposure to or infection with HIV-1 and/orHIV-2. Nonreactive results in this assay for individualswith prior exposure to HIV-1 and/or HIV-2 may be due toantigen and antibody levels that are below the limit ofdetection of this assay.The [address] [employer] HIV Ag/Ab Combo assay result andsupplemental assay results should be interpreted inconjunction with the patient's clinical presentation,history and other laboratory results. If the results areinconsistent with clinical evidence, additional testing issuggested to confirm the result. Blood Venous blood specimen / Unknown 11/24/2024 11:05 AM EDT 11/24/2024 1:12 PM EDT us Bere Cai MD LAB BLOOD ORDERABLES Final Result Performing Organization Address [facility] Co de Phone Number [facility] [address] [place] [phone] * Hemoglobin A1c (11/24/2024 11:05 AM EDT) Hemoglobin A1c 5.8 <6.0 % [facility] Comment:Hemoglobin A1C Refer ence Range Adults: 4.8 - 6.0 % Non diabetic: < 6.0 % Goal: < 7.0 %Additional Action Suggested: > 8.0 %Note: Hemoglobin A1c results are invalid for patients with abnormal amounts of HbF. Blood transfusions may impact the HbA1c concentration in the patient sample. Estimated Average Glucose 120 mg/dL [facility] Comment:eAG = Estimated ave rage glucose which is %A1C expressed asaverage glucose, using the formula of the S4E-HtrdlkyZvrhwyo Glucose study (ADAG), Diabetes Care, Vol.31,#8,2007 Blood Venous blood specimen / Unknown 11/24/2024 11:05 AM EDT 11/24/2024 1:12 PM EDT us Bere Cai MD LAB BLOOD ORDERABLES Final Result Performing Organization Address [facility] Co de Phone Number [facility] [address] [place] [phone] * (ABNORMAL) Lipid Panel, Standard (11/24/2024 11:05 AM EDT) Triglycerides 120 <150 mg/dL [facility] Comment:Desirable Triglyceri de: less than 150 mg/dLBorderline High Triglyceride 150-199 mg/dLHigh Triglyceride: 200-499 mg/dLVery High Triglyceride: greater than or equal to 5OO mg/dL Cholesterol 254(H) <200 mg/dL [facility] Comment:Desirable Cholestero l: less than 200 mg/dLBorderline High Cholesterol: 200-239 mg/dLHigh Cholesterol: greater than 239 mg/dL LDL Cholesterol Calculated 178(H) <100 mg/dL [facility] Comment:Desirable LDL: less than 100 mg/dLNear Optimal/Above Optimal LDL: 110- 129 mg/dLBorderline High LDL: 130-159 mg/dLHigh LDL: 160-189 mg/dLVery High LDL: greater than or equal to 190 mg/dL HDL Cholesterol 52 >40 mg/dL [facility] Comment:Desirable HDL: great er than 40 mg/dL Note: This HDL assay may give artificially low results in patients with liver disease. Blood Venous blood specimen / Unknown 11/24/2024 11:05 AM EDT 11/24/2024 1:12 PM EDT Bere Cai MD LAB BLOOD ORDERABLES Final Result [facility] [address] [place] [phone] * (ABNORMAL) Comprehensive Metabolic Panel (11/24/2024 11:05 AM EDT) Sodium 141 135 - 145 mmol/L [facility] Potassium 4.0 3.3 - 5.1 mmol/L [facility] Chloride 109(H) 96 - 108 mmol/L [facility] Carbon Dioxide 25 22 - 29 mmol/L [facility] Anion Gap 11(L) 12 - 20 [facility] Urea Nitrogen (BUN) 7(L) 9 - 16 mg/dL [facility] Creatinine, Serum 0.54 0.5 - 1.4 mg/dL [facility] Estimated Glomerular Filt Rate >60 [facility] Comment:Chronic Kidney Disea se: Estimated GFR < 60 mL/min/[id number] Kidney Disease: Estimated GFR < 15 mL/min/1.73m2 Glucose 87 60 - 115 mg/dL [facility] Calcium 9.2 8.4 - 10.2 mg/dL [facility] Bilirubin, Total 0.2 0.0 - 1.0 mg/dL [facility] Aspartate Amino Transferase 23 5 - 31 U/L [facility] Alanine Aminotransferase 24 0 - 31 U/L [facility] Total Protein 7.5 6.5 - 8.0 g/dL [facility] Albumin Level 4.5 3.5 - 5.0 g/dL [facility] Alkaline Phosphatase 71 39 - 117 U/L [facility] Blood Venous blood specimen / Unknown 11/24/2024 11:05 AM EDT 11/24/2024 1:12 PM EDT Bere Cai MD LAB BLOOD ORDERABLES Final Result [facility] [address] [place] [phone] from Last 3 Months Insurance [facility] ST[facility] ADULT Care Teams Loan Reviewer Relationship Specialty Start Date End Date Bere Browning MD [address] [place] [phone] PCP - General Internal Medicine 12/05/24
--- OUTSIDE RECORDS SUMMARY | 2025-01-16 20:55 | XMS_ITS | Encounter Summary ---
Author Organization [email or web address] Address [address] [facility] 7t [place] [address] Care Team Providers Care Mental Measurements Teacher Name Role Phone Bere Browning MD Primary Care Provide r Reason for Visit * Reason Onset Date Comments Chart Prep 01/13/2025 Encounter Details Date Type Department Care Team (Late st Contact Info) Description 01/13/2025 Telephone [facility] [address] [place] [address] Bere Browning MD [address] [place] [address] Chart Prep Social History Tobacco Use Types Packs/Day Years [...] encounter Miscellaneous Notes * Telephone Encounter - Ashley SIMIN Wilcox - 01/13/2025 11:48 AM EDT Chart Prep Labs: done Images: not applicable Referrals: appointment pending Vaccines due: Covid, Flu, Hep B, and HPV Screenings: LMP and PISQ Overdue care gaps: SDOH, PHQ-9, and SREEKANTH-7 documented in this encounter Plan of Treatment Upcoming Encounters Date Type Department Care Team (Late st Contact Info) Description 01/31/2025 10:00 AM EST Office Visit [facility] [address] [place] [address] Herman Reid DDS [address] [place] [address] 07/13/2025 9:30 AM EDT Office Visit [facility] [address] [place] [address] Susan Pham documented as of this encounter Visit Diagnoses Not on filedocumented in this encounter Additional Health Concerns Assessment Noted Time PHQ-9 Depression Total Score: 0 11/25/19 11:13 AM EDT documented as of this encounter Care Teams Mental Measurements Teacher Relationship Specialty Start Date End Date Bere Browning MD [address] [place] [phone] PCP - General Internal Medicine 12/05/24 documented as of this encounter
--- OUTSIDE RECORDS SUMMARY | 2025-01-16 20:56 | XMS_ITS | Encounter Summary ---
Author Organization [employer] Address [address] [facility] [address] [place] [address] Care Team Providers Care Mussel Opener Name Role Phone Bere Browning MD Primary Care Provide r Encounter Details Date Type Department Care Team (Latest Contact Info) Description 01/16/2025 Travel Social History Tobacco Use Types Packs/Day [...] Description 01/31/2025 10:00 AM EST Office Visit [facility] [address] [place] [address] Herman Reid DDS [address] [place] [address] 07/13/2025 9:30 AM EDT Office Visit [facility] [address] [place] [address] Pham, Susan documented as of this encounter Visit Diagnoses Not on filedocumented in this encounter Additional Health Concerns Assessment Noted Time PHQ-9 Depression Total Score: 0 11/25/19 11:13 AM EDT documented as of this encounter Care Teams Mussel Opener Relationship Specialty Start Date End Date Bere Browning MD [address] [place] [address] PCP - General Internal Medicine 12/05/24 documented as of this encounter
--- OUTSIDE RECORDS SUMMARY | 2025-01-16 20:56 | XMS_ITS | Encounter Summary ---
Author Organization [employer] Address [address] [facility] 7[address] [place] [address] Care Team Providers Care Dining Room Busser Name Role Phone Bere Browning MD Primary Care Provide r Reason for Visit * Reason Comments Care Coordination C3 LEELA rondon outreach in person Encounter Details Date Type Department Care Team (Latest Contact Info) Description 01/16/2025 Patient Outreach [facility] [address] [place] [address] Bere Browning MD [address] [place] [address] Care Coordination (C3 LEELA Peraza outreach in person) Social History Tobacco Use Types Packs/Day Years [...] as of this encounter Progress Notes * Helen Peraza - 01/16/2025 11:29 AM EDT CHW Helen Peraza placed outbound call to patient introducing herself from [facility] CM Department, in regards to offering CM-CHW program services. Patient's name and was confirmed. Patient agrees to participate in CHW- program for SDOH needs. SDOH screening completed: CHW Helen Peraza and Johanna Angel spoke with patient she is working with Alexander Allan she will continue to help her. CHW reinforced direct contact information for any additional questions or concerns and extended clinic hours on Mondays and Wednesdays, and Walk-In Urgent Care Located in [facility].Patient provided with after-hours line for [facility], , which offer night time triage serviceand option to transfer to gas operation manager provider if needed. Patient verbalizes understanding, and able torepeat back to investigative writer. documented in this encounter Plan of Treatment Upcoming Encounters Date Type Department Care Team (Late st Contact Info) Description 01/31/2025 10:00 AM EST Office Visit [facility] [address] [place], [place] [phone] Herman Reid DDS [address] [place], [place] [phone] 07/13/2025 9:30 AM EDT Office Visit [facility] [address] [place], [place] [phone] Susan Pham documented as of this encounter Visit Diagnoses Not on filedocumented in this encounter Additional Health Concerns Assessment Noted Time PHQ-9 Depression Total Score: 0 11/25/19 11:13 AM EDT documented as of this encounter Care Teams Dining Room Busser Relationship Specialty Start Date End Date Bere Browning MD [address] [place] [address] PCP - General Internal Medicine 12/05/24 documented as of this encounter
== END 2025-01-16 17:53 | disposition home or self-care (01) ==
LOC: HO.LNP 17:52
PROVIDERS: Visit Provider Internal Medicine
DX: Z12.4 Encounter for screening for malignant neoplasm of cervix (principal); Z11.51 Encounter for screening for human papillomavirus (HPV)
CPT/HCPCS: 87626; 88175